=== PATIENT | female | born 1980 | race Caucasian/White ===

== ENCOUNTER 2023-10-15 06:02 | Day surgery (SDC) | payer OTHER ==
[2023-10-09 16:46] VITALS: BMI 34.4
[2023-10-15] MEDS ORDERED: ERYTHROMYCIN 0.5% OPHTHALMIC OINTMENT 3.5 GM TUBE ONE (07:12)
[2023-10-15] MEDS ORDERED: ceFAZolin SODIUM 1 GM VIAL ONE ×2 (07:12→07:33)
[2023-10-15] MEDS ORDERED: BUPIVACAINE HCL/PF 0.5% (5MG/ML) 10 ML VIAL ONE (07:13)
[2023-10-15] MEDS ORDERED: LIDOCAINE 1%/EPI 1:100000 (50 ML MULTI DOSE VIAL) ONE (07:13)
[2023-10-15] MEDS ORDERED: TETRACAINE 0.5% OPHTH SOLN 2 ML BOTTLE ONE (07:13)
[2023-10-15] MEDS ORDERED: POVIDONE-IODINE 5% OPHTHALMIC PREP 30 ML SOLUTION ONE (07:13)
[2023-10-15] MEDS ORDERED: PROPOFOL 40 ML ONE (07:33)
[2023-10-15] MEDS ORDERED: ONDANSETRON 4 MG/2 ML VIAL ONE (07:33)
[2023-10-15] MEDS ORDERED: DEXAMETHASONE SOD PHOSPHATE 4 MG/1 ML VIAL ONE (07:33)
[2023-10-15] MEDS ORDERED: MIDAZOLAM HCL 2 MG/2 ML SINGLE DOSE VIAL ONE (07:34)
[2023-10-15] MEDS ORDERED: PROPOFOL 20 ML ONE ×2 (08:29→08:50)
[2023-10-15] MEDS ORDERED: ONDANSETRON 4 MG/2 ML VIAL IVPUSH PRN (09:12)
[2023-10-15] MEDS ORDERED: oxyCODONE HCL 5 MG TABLET PO PRN (09:12)
[2023-10-15] MEDS ORDERED: LACTATED RINGERS SOLUTION 1,000 ML IV SCH (09:15)
[2023-10-15] MEDS ORDERED: oxyCODONE HCL 5 MG TABLET ONE (10:13)
[2023-10-15 13:24] VITALS: RESP 16; TEMP 97.5
[2023-10-15 14:08] VITALS: BP 124/81; PULSE 84
== END 2023-10-15 11:00 | disposition home or self-care (01) ==
LOC: FASU 06:02
PROVIDERS: ATTEND Ophthalmology
PROC: 0KX10ZZ Transfer Facial Muscle, Open Approach (ICD-10-PCS; 2023-10-15)
PROC: 08SQ0ZZ Reposition Right Lower Eyelid, Open Approach (ICD-10-PCS; principal; 2023-10-15 08:06)
DX: C44.1122 Basal cell carcinoma of skin of right lower eyelid, including canthus (principal)
CPT/HCPCS: 81025; 94760